=== PATIENT | male | born 1940 | race Caucasian/White ===

== ENCOUNTER 2023-04-11 08:43 | Day surgery (SDC) | payer OTHER ==
[2023-04-11] MEDS: CYCLOPENTOLATE 2% OPHTH SOLN 2 ML BOTTLE ONE ×3 (09:20→09:30)
[2023-04-11] MEDS: TROPICAMIDE 1% OPHTH SOLN 15 ML BOTTLE ONE ×3 (09:20→09:30)
[2023-04-11] MEDS: PHENYLEPHRINE 2.5% OPTHALMIC DROP 2ML BOTTLE ONE ×3 (09:20→09:30)
[2023-04-11] MEDS: CIPROFLOXACIN 0.3% EYE DROPS 5 ML BOTTLE ONE ×3 (09:20→09:30)
[2023-04-11 09:40] VITALS: BMI 21.7
[2023-04-11] MEDS ORDERED: NEO/POLYMYX B SULF/DEXAMETH OPHTHALMIC 5ML BOTTLE ONE (09:51)
[2023-04-11] MEDS ORDERED: BSS (NA/CA/MG/K) BALANCED SALT SOLUTION OPHTH SOLN 15 ML BOTTLE ONE (09:51)
[2023-04-11] MEDS ORDERED: EPINEPHrine/PF 1 MG/1 ML (1:1,000) AMPULE ONE (09:51)
[2023-04-11] MEDS ORDERED: CARBACHOL 0.01% INTRA-OCULAR 1.5 ML VIAL ONE (09:51)
[2023-04-11] MEDS ORDERED: TETRACAINE 0.5% OPHTH SOLN 2 ML BOTTLE ONE (09:51)
[2023-04-11] MEDS ORDERED: LIDOCAINE 1% P/F 10 MG/ML VIAL ONE (09:51)
[2023-04-11] MEDS ORDERED: MIDAZOLAM HCL 2 MG/2 ML SINGLE DOSE VIAL ONE (10:01)
[2023-04-11 12:36] VITALS: RESP 19; TEMP 97.7
[2023-04-11 12:43] VITALS: BP 116/51; PULSE 65
== END 2023-04-11 12:35 | disposition home or self-care (01) ==
LOC: FASU 08:43
PROVIDERS: ATTEND Ophthalmology
PROC: 08RK3JZ Replacement of Left Lens with Synthetic Substitute, Percutaneous Approach (ICD-10-PCS; principal; 2023-04-11 11:08)
DX: H26.8 Other specified cataract (principal)
CPT/HCPCS: 66984; V2632; 82962

== ENCOUNTER 2023-05-22 07:44 | Day surgery (SDC) | payer OTHER ==
[2023-05-17 10:04] VITALS: BMI 21.7
[2023-05-22] MEDS: CIPROFLOXACIN 0.3% EYE DROPS 5 ML BOTTLE ONE ×3 (08:15→08:25)
[2023-05-22] MEDS: PHENYLEPHRINE 2.5% OPTHALMIC DROP 2ML BOTTLE ONE ×3 (08:15→08:25)
[2023-05-22] MEDS: TROPICAMIDE 1% OPHTH SOLN 15 ML BOTTLE ONE ×3 (08:15→08:25)
[2023-05-22] MEDS: CYCLOPENTOLATE 2% OPHTH SOLN 2 ML BOTTLE ONE ×3 (08:15→08:25)
[2023-05-22 08:25] VITALS: RESP 16
[2023-05-22] MEDS ORDERED: BSS (NA/CA/MG/K) BALANCED SALT SOLUTION OPHTH SOLN 15 ML BOTTLE ONE (08:46)
[2023-05-22] MEDS ORDERED: LIDOCAINE HCL/PF 1% SDV 5ML VIAL ONE (08:46)
[2023-05-22] MEDS ORDERED: CARBACHOL 0.01% INTRA-OCULAR 1.5 ML VIAL ONE (08:46)
[2023-05-22] MEDS ORDERED: NEO/POLYMYX B SULF/DEXAMETH OPHTHALMIC 5ML BOTTLE ONE (08:46)
[2023-05-22] MEDS ORDERED: MIDAZOLAM HCL 2 MG/2 ML SINGLE DOSE VIAL ONE (09:30)
[2023-05-22 10:36] VITALS: TEMP 97.6
[2023-05-22 12:53] VITALS: BP 123/48; PULSE 68
== END 2023-05-22 11:05 | disposition home or self-care (01) ==
LOC: FASU 07:44
PROVIDERS: ATTEND Ophthalmology
PROC: 08RJ3JZ Replacement of Right Lens with Synthetic Substitute, Percutaneous Approach (ICD-10-PCS; principal; 2023-05-22 09:41)
DX: H26.8 Other specified cataract (principal)
CPT/HCPCS: 66984; V2632; 82962